=== PATIENT | male | born 1980 | race Caucasian/White ===

== ENCOUNTER 2018-04-03 09:14 | Emergency (ER) | payer SELFPAY ==
[~2018-04-03] VITALS: Ht 195.6 cm; Wt 95.3 kg
[2018-04-03 09:45] VITALS: BP 117/68
[2018-04-03] MEDS ORDERED: IBUPROFEN 400 MG TABLET. PO ONE (10:15)
[2018-04-03 10:31] LABS: INFLUENZA A PATIENT POSITIVE (NEGATIVE); INFLUENZA B PATIENT NEGATIVE (NEGATIVE)
[2018-04-03] MEDS ORDERED: OSEL75CA PO (10:47)
--- NOTE | 2018-04-03 10:47 | PHYS DOC ---
Past Medical History Past Medical History: No Pertinent History Past Surgical History: Appendectomy Additional Past Surgical Histo: ABDOMINAL Alcohol Use: Occasionally Drug Use: Cocaine, Marijuana, Methadone, Methamphetamine, Other Social History Narrative: LSD Adult General Chief Complaint Chief Complaint: FLU SYMPTOM HPI HPI 37-year-old male presents to ER with flulike symptom complaints. Patient states he had onset of symptoms yesterday he does however feel somewhat better today. He has had generalized body aches and felt like he has had a fever. Patient denies urinary symptoms. Patient reports he's had decreased appetite and fluid intake today denies any nausea or vomiting. Patient denies diarrhea episodes. He denies any recent travel. He reports he did take Mucinex today denies any other [id number] medications. Review of Systems Review of Systems Constitutional: Reports chills and feels feverish- hasn't checked temp. Reports generalized fatigue Eyes: Denies change in visual acuity, redness, or eye pain [] HENT: Denies nasal congestion. Reports sore throat Respiratory: Denies shortness of breath. Reports nonprod. cough Cardiovascular: No additional information not addressed in HPI [] GI: Denies abdominal pain, nausea, vomiting, bloody stools or diarrhea [] : Denies dysuria or hematuria [] Musculoskeletal: Denies back pain or joint pain [] Integument: Denies rash or skin lesions [] Neurologic: Denies focal weakness or sensory changes. Reports headache denies dizziness All other systems were reviewed and found to be within normal limits, except as documented in this note. Current Medications Current Medications Current Medications Medications (Trade) Dose Ordered Sig/[facility] Start Time Stop Time Status Last Admin Dose Admin Ibuprofen (Motrin) 800 mg 1X ONCE 04/03/18 10:15 04/03/18 10:16 DC 04/03/18 10:24 800 MG Allergies Allergies Allergies Coded Allergies Type Severity Reaction Last Updated Verified nickel Allergy Intermediate 04/03/18 Yes Physical Exam Physical Exam Constitutional: Well developed, well nourished, no acute distress, non-toxic appearance. [] HENT: Normocephalic, atraumatic, bilateral ears normal, oropharynx moist, no oral exudates- no pharyngeal or tonsillar swelling patient does have mild erythema, nose normal. [] Eyes: Pupils equal, conjunctiva normal, no discharge. [] Neck: Normal range of motion, no tenderness, supple, no stridor. [] Cardiovascular:Heart rate regular rhythm, no murmur [] Lungs & Thorax: Bilateral breath sounds clear to auscultation [] Abdomen: Bowel sounds normal, soft, no tenderness, no masses, no pulsatile masses. [] Skin: Warm, dry, no erythema, no rash. [] Back: No tenderness, no CVA tenderness. [] Extremities: No tenderness, no cyanosis, no clubbing, ROM intact, no edema. [] Neurologic: Alert and oriented X 3, normal motor function, normal sensory function, no focal deficits noted. [] Psychologic: Affect normal, judgement normal, mood normal. [] Current Patient Data Vital Signs Vital Signs Date Time Temp Pulse Resp B/P (MAP) Pulse Ox O2 Delivery O2 Flow Rate FiO2 04/03/18 09:45 101.8 97 20 117/68 (84) 97 Room Air 101.8 Lab Values Laboratory Tests Test 04/03/18 09:45 Influenza Type A Antigen Positive (NEGATIVE) Influenza Type B Antigen Negative (NEGATIVE) EKG EKG [] Radiology/Procedures Radiology/Procedures [] Course & Med Decision Making Course & Med Decision Making Pertinent Labs reviewed. (See chart for details) 1035: Pt was evaluated in the ER for flulike symptoms and was found positive for flu a. Patient was given dose of ibuprofen. Discussed plans for prescription for Tamiflu and patient to use [id number] Tylenol and/or ibuprofen PRN. Education provided on signs and symptoms to return to ER for an discharge instructions were discussed. Patient was encouraged to increase fluid intake. Smoking cessation was discussed. Patient remains nontoxic in appearance. Dragon Disclaimer Dragon Disclaimer This electronic medical record was generated, in whole or in part, using a voice recognition dictation system. Departure Departure Impression: Primary Impression: Influenza A Disposition: 01 HOME, SELF-CARE Condition: STABLE Referrals: UNKNOWN PCP NAME (PCP) Patient Instructions: Influenza Virus Vaccine injection (Fluarix) Additional Instructions: Drink plenty of fluids. Tylenol and/or ibuprofen as directed on container for pain control as needed. Avoid smoking. If symptoms persist or with concerns follow-up with your primary care physician for further care and reevaluation. Scripts Oseltamivir Phosphate (TAMIFLU) 75 Mg Capsule 1 CAP PO BID, #10 CAP 0 Refills Prov: ISABELLE MYERS APRN 04/03/18 ISABELLE MYERS APRN Apr 03, 2018 10:47
== END 2018-04-03 10:54 | disposition home or self-care (01) ==
LOC: ER 09:14
DX: J09.X2 Influenza due to identified novel influenza A virus with other respiratory manifestations (principal); Z88.8 Allergy status to other drugs, medicaments and biological substances
CPT/HCPCS: 87804; 99283